=== PATIENT | male | born 1960 | race Caucasian/White ===

== ENCOUNTER 2019-12-07 18:42 | Emergency (ER) | payer MEDICARE, OTHER ==
[~2019-12-07] VITALS: Ht 193 cm; Wt 121.0 kg
--- NOTE | 2019-12-07 20:04 | NUR ---
PT TO ROOM FROM LOBBY
--- NOTE | 2019-12-07 20:30 | NUR ---
pt states he is not having and cp any more. pt states he has had a lot of stress becuase of disputes with his girlfriend.
[2019-12-07 21:09] LABS: BASOPHILS # (AUTO) 0.07 x10^3/uL (0-0.1); BASOPHILS % (AUTO) 1 % (0-1); EOSINOPHILS # (AUTO) 0.16 x10^3/uL (0-0.4); EOSINOPHILS % (AUTO) 2 % (1-7); LYMPHOCYTES # (AUTO) 1.35 x10^3/uL (1-3.4); LYMPHOCYTES % (AUTO) 20 % (22-44); MD NO; MEAN CORPUSCULAR HEMOGLOBIN 32.1 pg (27.5-34.5); MEAN CORPUSCULAR HGB CONC 33.3 g/dL (33.2-36.2); MEAN CORPUSCULAR VOLUME 96.4 fL (81-97); MEAN PLATELET VOLUME 8.1 fL (7.4-10.4); MONOCYTES # (AUTO) 1.17 x10^3/uL (0.2-0.8); MONOCYTES % (AUTO) 18 % (2-9); NEUTROPHILS # (AUTO) 3.89 x10^3/uL (1.8-6.8); NEUTROPHILS % (AUTO) 59 % (42-75); PLATELET COUNT 320 x10^3/uL (130-400)
--- NOTE | 2019-12-07 21:15 | NUR ---
PT FOR RECHECK BY ERP
[2019-12-07 21:16] LABS: ALANINE AMINOTRANSFERASE 84 U/L (12-78); ALBUMIN 3.5 g/dL (3.4-5.0); ANION GAP 5 mmol/L (5-15); CALCIUM 8.8 mg/dL (8.5-10.1); CHLORIDE 105 mmol/L (98-107); CREATININE 0.82 mg/dL (0.7-1.3)
[2019-12-07 21:20] LABS: ALKALINE PHOSPHATASE 52 U/L (45-117); BILIRUBIN,TOTAL 0.8 mg/dL (0.2-1.0); TOTAL PROTEIN 7.4 g/dL (6.4-8.2); TROPONIN I < 0.015 ng/mL (0.000-0.045)
[2019-12-07 21:32] VITALS: BP 134/96
--- NOTE | 2019-12-07 22:19 | NUR ---
PT UNHAPPY D/T THE FACT THAT [facility] WILL NOT PERSCRIBE HIM INSULIN. WHEN ASKED WHAT TYPE OF INSULIN HE TAKES PT STATES "I THINK ITS HUMULIN" PT DOES NOT HAVE A PRIMARY CARE, ALTHOUGH HE WAS GIVEN A REFERRAL TO A PRIMARYCARE MD. PT STATES HE HAS BEEN GETTING INSULIN THROUGH EMERGENCY DEPARTMENTS HERE AND [facility]. I EDUCATED PT THAT IS NOT PROPER USE OF THE HEALTHCARE SYSTEMS AND T2DM AND INSULIN PERSCRIPTIONS ARE TO BE MONITORED THROUGH PRIMARY CARE SERVICES, NOT EMERGENCY. PT STILL NOT HAPPY ABOUT HIS VISIT HERE TODAY DISPITE THE EDUCATION I PROVIDED TO HIM.
== END 2019-12-07 22:24 | disposition home or self-care (01) ==
LOC: ED 22:00
DX: R42 Dizziness and giddiness (principal); E11.65 Type 2 diabetes mellitus with hyperglycemia; Z72.9 Problem related to lifestyle, unspecified; Z76.0 Encounter for issue of repeat prescription; R07.89 Other chest pain; R06.02 Shortness of breath; R94.31 Abnormal electrocardiogram [ECG] [EKG]
CPT/HCPCS: 36415; 80053; 84484; 85025; 93005; 99284

== ENCOUNTER 2020-10-15 19:22 | Emergency (ER) | payer MEDICARE ==
[~2020-10-15] VITALS: Ht 193 cm; Wt 120.0 kg
[~2020-10-15 19:22] MED LIST: DOXE100C PO; FOLI1TAB32 PO; LISI-167 PO; MULT-449 PO; THIA100T67 PO
--- NOTE | 2020-10-15 19:35 | NUR ---
THIS IS A 59M BIB EMS FOUND ON GROUND NEAR BELIEVE SIGN, PT STS HAD ABOUT A PINT OF VODKA TODAY AND TRIPPED UNK LOC. PT NOTED TO HAVE LAC TO R CHEEK AND NOSE. PT ARRIVED CCOLLAR IN PLACE. PT CALM COOPERATIVE CONNECTED TO MONITORING VSSNATHALIA
[2020-10-15] MEDS ORDERED: LIDOCAINE-MPF 1%, 2ML INFIL ONE (20:00)
[2020-10-15] MEDS ORDERED: LIDOCAINE-MPF 1%, 5ML ONE (22:07)
--- NOTE | 2020-10-15 23:37 | NUR ---
PROVIDER AT BEDSIDE FOR SUTURES
[2020-10-16] MEDS ORDERED: BACITRACIN ZINC OINT 500U/GM, 0.9 GM ONE ×2 (01:06→01:07)
[2020-10-16 01:28] VITALS: BP 135/85
--- NOTE | 2020-10-16 01:51 | NUR ---
Patient given discharge instructions and they have confirmed that they understand the instructions. Patient ambulatory with steady gait. NAD, all questions answered appropriately, denies additional needs at this time. No personal belongings left in room after discharge.
== END 2020-10-16 01:53 | disposition home or self-care (01) ==
LOC: ED 22:00
DX: S02.2XXA Fracture of nasal bones, initial encounter for closed fracture (principal); S01.21XA Laceration without foreign body of nose, initial encounter; F10.129 Alcohol abuse with intoxication, unspecified; M54.2 Cervicalgia; M25.512 Pain in left shoulder; E11.9 Type 2 diabetes mellitus without complications; W01.0XXA Fall on same level from slipping, tripping and stumbling without subsequent striking against object, initial encounter; Y93.01 Activity, walking, marching and hiking; Y92.009 Unspecified place in unspecified non-institutional (private) residence as the place of occurrence of the external cause; Y99.8 Other external cause status; Y90.0 Blood alcohol level of less than 20 mg/100 ml
CPT/HCPCS: 12051; 70450; 70486; 72125; 99285